=== PATIENT | female | born 1970 | race Caucasian/White ===

== ENCOUNTER 2024-07-08 17:43 | Emergency (ER) | payer MEDICARE, SELFPAY ==
[2024-07-08] VITALS (25 sets, daily range): BP systolic 122–133; BP diastolic 82–96; PULSE 95–238; TEMP 36.7; O2SAT 91–99; BMI 26.6
--- NOTE | 2024-07-08 17:47 | ECG_ITS ---
The [facility] Test Date: 2024-07-08 Pat Name: RUBEN BLANCHARD Department: Room: - Gender: Female Resource Analyst: : 1970 Requested By: [id number] Order Number: [id number] Reading MD: BETHANY LUNDBERG Measurements Intervals [place] Rate: 237 P: -12079 CT: -59953 QRS: 97 QRSD: 78 T: 32 QT: 254 QTc: 360 Interpretive Statements 1420 Undetermined rhythm (Possible supraventricular tachycardia) [address] depression, possible subendocardial injury 4564 Twave abnormality, possible lateral ischemia 7102 Moderate right axis deviation 9150 abnormal ECG No previous ECG available for comparison Electronically Signed On 07-09-2024 14:48:24 EST by BETHANY LUNDBERG
--- NOTE | 2024-07-08 17:47 | XR_ITS ---
The [address] [address] Patient Name: RUBEN BLANCHARD MRN: [id number] date: 1970 Sex: F Assigned Patient Location: ED.MAIN Current Patient Location: Accession/Order Number: [id number] Exam Date: 07/08/2024 18:02 Report Date: 07/08/2024 20:16 At the request of: BLAINE PADILLA Procedure: XR chest 1V CXR HISTORY: Shortness of breath COMPARISON: None. TECHNIQUE: 1 view chest submitted for review. FINDINGS: Cardiac monitoring device demonstrated. The lungs are adequately expanded without evidence of acute infiltrate or effusion. The cardiac silhouette measures within normal. Pulmonary vascularity is unremarkable. Osseous structures do not demonstrate any acute abnormality. XR/XR chest 1V IMPRESSION: No plain film evidence for acute cardiopulmonary disease. Electronically authenticated by: ALFONZO ROSE Date: 07/08/2024 20:16
[2024-07-08] MEDS: ADENOSINE 6 MG/2 ML VIAL IVP (17:51)
[2024-07-08] MEDS: ADENOSINE 6 MG/2 ML VIAL 12 MG IVP (17:53)
--- NOTE | 2024-07-08 17:53 | ECG_ITS ---
The [facility] Test Date: 2024-07-08 Pat Name: RUBEN BLANCHARD Department: Room: - Gender: Female Social Media Content Specialist: : 1970 Requested By: [id number] Order Number: [id number] Reading MD: BETHANY LUNDBERG Measurements Intervals [place] Rate: 120 P: 80 SC: 142 QRS: 95 QRSD: 76 T: 73 QT: 296 QTc: 367 Interpretive Statements 1120 Sinus tachycardia 1470 with occasional supraventricular premature complexes 1570 with occasional ventricular premature complexes [address] depression 7102 Moderate right axis deviation 9150 abnormal ECG Electronically Signed On 07-09-2024 14:57:38 EST by BETHANY LUNDBERG
--- NOTE | 2024-07-08 18:07 | ED_ITS ---
HPI - Chest Pain General Chief Complaint: Chest Pain Stated Complaint: SHORTNESS OF BREATH Time Seen by Provider: 07/08/24 17:46 Source: patient Mode of arrival: Wheelchair History of Present Illness HPI narrative: The patient is a 53-year-old female who have a history of SVT presenting to us brought to by the private car after she was attending a , the patient lives initially in [place] she just came here to attend friend , the patient denies being emotional when this started but she mentioned just within the last few minutes she started having this chest pain and dizziness Patient mentioned this happened to her almost 6 times before sometimes she need to be cardioverted The patient was sweating as well upon arrival Related Data Allergies Allergy/AdvReac Type Severity Reaction Status Date / Time No Known Drug Allergies Allergy Verified 07/08/24 17:48 Review of Systems ROS Status of ROS 10 or more systems reviewed and unremark able except as noted in history and below Exam Narrative Exam Narrative: Nurses notes and vital signs reviewed and patient is not hypoxic. General: Well-appearing and in no apparent distress. Skin: Warm, dry, no pallor noted. No rash. Head: Normocephalic, atraumatic. Neck: Supple, non-tender. Eye: Pupils are equal, round and EOMI. No scleral icterus. Ears, Nose, Mouth, and Throat: TM are clear, no nasal mucosal hypertrophy. Oral mucosa is moist, no posterior oropharynx erythema, uvula is mid-line Cardiovascular: Regular Rate and Rhythm after the SVT was treated, without murmur, gallop or rub. Respiratory: No accessory muscle use or respiratory distress. Lungs are clear to auscultation, no wheezing, rales or rhonchi Chest Wall: no tenderness Back: No midline thoracic or lumbar vertebral tenderness. No CVA tenderness Musculoskeletal: normal ROM, no calf or popliteal tenderness, no lower extremity edema/swelling GI: Abdomen is soft, non-distended. Normal bowel sounds. No masses appreciated. No tenderness to palpation. No rebound, guarding, or rigidity noted. Neurological: A&O x4. No cranial nerve dysfunction observed. No truncal ataxia. Moves all extremities. Sensation intact. Psychiatric: Cooperative and interactive. Normal mood and affect. Constitutional Vital Signs, click to edit/add: Last Vital Signs Temp 98.0 F 07/08/24 18:00 Pulse 110 H 07/08/24 18:30 Resp 19 07/08/24 18:30 BP 125/85 07/08/24 18:30 Pulse Ox 99 07/08/24 18:30 O2 Del Method Nasal Cannula 07/08/24 17:53 O2 Flow Rate 2 07/08/24 17:53 Course Vital Signs Vital signs: Vital Signs Pulse Rate 221 H 07/08/24 17:43 Respiratory Rate 26 H 07/08/24 17:43 Pulse Oximetry 97 07/08/24 17:43 Oxygen Delivery Method Nasal Cannula 07/08/24 17:43 Oxygen Delivery Flow Rate 2 07/08/24 17:43 Temperature 98.0 F 07/08/24 18:00 Pulse Rate 110 H 07/08/24 18:30 Respiratory Rate 19 07/08/24 18:30 Blood Pressure 125/85 07/08/24 18:30 Pulse Oximetry 99 07/08/24 18:30 Oxygen Delivery Method Nasal Cannula 07/08/24 17:53 Oxygen Delivery Flow Rate 2 07/08/24 17:53 MDM - Chest Pain MDM Narrative Medical decision making narrative: The patient EKG initially showing SVT and heart rate was 237 The patient at that time and provided with 6 mg of adenosine that did not help her controlling the rhythm and then she was provided with 12 mg That was sufficient to control the patient rhythm to sinus rhythm the repeated EKG showing sinus rhythm with a heart rate of [address] elevation but there is some ST depression noticed on multiple leads with no old EKG for comparison, mostly leads V4, V5 and V6 Patient blood workup showed no acute significant pathology her first troponin was negative but awaiting the second troponin the patient care will be transferred to Lab Data Labs: Lab Results 07/08/24 Range/Units 18:08 WBC 7.5 (4.0-11.0) 10^3/uL RBC 5.32 (4.20-5.40) 10^6/uL Hgb 14.2 (12.0-16.0) g/dL Hct 45.2 (36.0-48.0) % MCV 85.0 (81.0-99.0) fL MCH 26.7 (26.7-34.0) pg MCHC 31.4 (29.9-35.2) g/dL RDW 14.5 (11.0-15.0) % Plt Count 227 (150-450) 10^3/uL MPV 9.8 (9.5-13.5) fL Neut % (Auto) 58.8 (43.0-75.0) % Lymph % (Auto) 33.3 (20.5-60.0) % [place] % (Auto) 5.7 (1.7-12.0) % Eos % (Auto) 1.6 (0.9-7.0) % Baso % (Auto) 0.5 (0.2-2.0) % Neut # (Auto) 4.4 (1.4-6.5) 10^3/uL Lymph # (Auto) 2.5 (1.2-3.8) 10^3/uL [place] # (Auto) 0.4 (0.3-0.8) 10^3/uL Eos # (Auto) 0.1 (0.0-0.7) 10^3/uL Baso # (Auto) 0.0 (0.0-0.1) 10^3/uL Abs Immat Gran (auto) 0.01 (0.00-0.03) 10^3/uL Imm/Tot Granulo (auto) 0.1 (0.0-0.5) % PT 10.3 (9.0-11.6) sec INR 0.97 Sodium 145 (136-145) mmol/L Potassium 3.7 (3.5-5.1) mmol/L Chloride 105 (98-107) mmol/L Carbon Dioxide 28.1 (21.0-32.0) mmol/L Anion Gap 15.6 BUN 18.0 (7.0-18.0) mg/dL Creatinine 1.26 H (0.55-1.02) mg/dL Est GFR ( Amer) 53 L (>=60 mL/min/1.73m^2) Est GFR (Non-Af Amer) 44 L (>=60 mL/min/1.73m^2) BUN/Creatinine Ratio 14.3 Glucose 112 H (74-106) mg/dL Calcium 9.1 (8.5-10.1) mg/dL Magnesium 2.2 (1.8-2.4) mg/dL Total Bilirubin 0.7 (0.2-1.0) mg/dL AST 37 (15-37) U/L ALT 36 (14-59) U/L Alkaline Phosphatase 103 (46-116) U/L Troponin I High Sens <4.0 L (4.0-51.3) pg/mL Total Protein 7.5 (6.4-8.2) g/dL Albumin 3.6 (3.4-5.0) g/dL Globulin 3.9 g/dL Albumin/Globulin Ratio 0.9 Ethanol Quant <3 mg/dL Discharge Plan Discharge Patient Disposition: Still a Patient
[2024-07-08] MEDS: 0.9 % SODIUM CHLORIDE 1,000 ML 500 ML IV (18:23)
[2024-07-08 18:24] LABS: Basophils Percent Auto 0.5 % (0.2-2.0); Eosinophils Absolute Auto 0.1 10^3/uL (0.0-0.7); Eosinophils Percent Auto 1.6 % (0.9-7.0); Hematocrit 45.2 % (36.0-48.0); Hemoglobin 14.2 g/dL (12.0-16.0); Immature Granulocytes Abs Auto 0.01 10^3/uL (0.00-0.03); Immature Granulocytes Pct Auto 0.1 % (0.0-0.5); Lymphocytes Absolute Auto 2.5 10^3/uL (1.2-3.8); Lymphocytes Percent Auto 33.3 % (20.5-60.0); Mean Corpuscular HGB Conc 31.4 g/dL (29.9-35.2); Mean Corpuscular Hemoglobin 26.7 pg (26.7-34.0); Mean Platelet Volume 9.8 fL (9.5-13.5); Monocytes Absolute Auto 0.4 10^3/uL (0.3-0.8); Monocytes Percent Auto 5.7 % (1.7-12.0); Neutrophils Absolute Auto 4.4 10^3/uL (1.4-6.5); Neutrophils Percent Auto 58.8 % (43.0-75.0); Platelet Count 227 10^3/uL (150-450); Red Blood Count 5.32 10^6/uL (4.20-5.40); Red Cell Distribution Width 14.5 % (11.0-15.0); White Blood Count 7.5 10^3/uL (4.0-11.0)
[2024-07-08 18:38] LABS: INR 0.97; Prothrombin Time 10.3 sec (9.0-11.6)
[2024-07-08 18:42] LABS: Alanine Aminotransferase 36 U/L (14-59); Albumin Globulin Ratio 0.9; Albumin Level 3.6 g/dL (3.4-5.0); Alkaline Phosphatase 103 U/L (46-116); Anion Gap 15.6; Aspartate Amino Transferase 37 U/L (15-37); BUN Creatinine Ratio 14.3; Bilirubin Total 0.7 mg/dL (0.2-1.0); Calcium 9.1 mg/dL (8.5-10.1); Carbon Dioxide 28.1 mmol/L (21.0-32.0); Chloride 105 mmol/L (98-107); Estimated GFR (African America 53 (>=60 mL/min/1.73m^2); Estimated GFR (Non-African Ame 44 (>=60 mL/min/1.73m^2); Globulin 3.9 g/dL; Glucose 112 mg/dL (74-106); Magnesium 2.2 mg/dL (1.8-2.4); Potassium 3.7 mmol/L (3.5-5.1); Sodium 145 mmol/L (136-145); Total Protein 7.5 g/dL (6.4-8.2); Troponin I High Sensitivity <4.0 pg/mL (4.0-51.3)
[2024-07-08 18:44] LABS: Ethanol <3 mg/dL
[2024-07-08 19:54] LABS: Troponin I High Sensitivity 17.8 pg/mL (4.0-51.3)
--- NOTE | 2024-07-08 20:00 | ED.GENADUL1 ---
HPI HPI - General Adult General Chief complaint: Chest Pain Stated complaint: SHORTNESS OF BREATH Time Seen by Provider: 07/08/24 17:46 Source: patient Mode of arrival: Wheelchair History of Present Illness HPI narrative: 53-year-old female presented to the emergency department and was initially seen by Dr. Boudreaux and signed out to me after discussing the case with her thoroughly. Please see her full history and physical exam. Related Data Allergies Allergy/AdvReac Type Severity Reaction Status Date / Time No Known Drug Allergies Allergy Verified 07/08/24 17:48 Opioid HPI Opioid Management Most Recent Opioid Data: No Data to Display Exam Constitutional Vital Signs, click to edit/add: Last Vital Signs Temp 98.0 F 07/08/24 18:00 Pulse 98 H 07/08/24 19:30 Resp 12 07/08/24 19:30 BP 133/88 07/08/24 19:30 Pulse Ox 99 07/08/24 19:30 O2 Del Method Nasal Cannula 07/08/24 17:53 O2 Flow Rate 2 07/08/24 17:53 Course Vital Signs Vital signs: Vital Signs Pulse Rate 221 H 07/08/24 17:43 Respiratory Rate 26 H 07/08/24 17:43 Pulse Oximetry 97 07/08/24 17:43 Oxygen Delivery Method Nasal Cannula 07/08/24 17:43 Oxygen Delivery Flow Rate 2 07/08/24 17:43 Temperature 98.0 F 07/08/24 18:00 Pulse Rate 98 H 07/08/24 19:30 Respiratory Rate 12 07/08/24 19:30 Blood Pressure 133/88 07/08/24 19:30 Pulse Oximetry 99 07/08/24 19:30 Oxygen Delivery Method Nasal Cannula 07/08/24 17:53 Oxygen Delivery Flow Rate 2 07/08/24 17:53 Medical Decision Making [facility] Narrative Medical decision making narrative: The patient remains in sinus rhythm and is asymptomatic and is able to be discharged home. There was a slight increase in her troponin but this would be expected in SVT. She will follow-up with cardiology and referral was made. Treatment diagnosis and follow-up were discussed with the patient Differential Diagnosis Differential Diagnosis: SVT Lab Data Lab results reviewed: Yes I reviewed the patient's lab results Labs: Lab Results 07/08/24 07/08/24 Range/Units 18:08 19:25 WBC 7.5 (4.0-11.0) 10^3/uL RBC 5.32 (4.20-5.40) 10^6/uL Hgb 14.2 (12.0-16.0) g/dL Hct 45.2 (36.0-48.0) % MCV 85.0 (81.0-99.0) fL MCH 26.7 (26.7-34.0) pg MCHC 31.4 (29.9-35.2) g/dL RDW 14.5 (11.0-15.0) % Plt Count 227 (150-450) 10^3/uL MPV 9.8 (9.5-13.5) fL Neut % (Auto) 58.8 (43.0-75.0) % Lymph % (Auto) 33.3 (20.5-60.0) % [place] % (Auto) 5.7 (1.7-12.0) % Eos % (Auto) 1.6 (0.9-7.0) % Baso % (Auto) 0.5 (0.2-2.0) % Neut # (Auto) 4.4 (1.4-6.5) 10^3/uL Lymph # (Auto) 2.5 (1.2-3.8) 10^3/uL [place] # (Auto) 0.4 (0.3-0.8) 10^3/uL Eos # (Auto) 0.1 (0.0-0.7) 10^3/uL Baso # (Auto) 0.0 (0.0-0.1) 10^3/uL Abs Immat Gran (auto) 0.01 (0.00-0.03) 10^3/uL Imm/Tot Granulo (auto) 0.1 (0.0-0.5) % PT 10.3 (9.0-11.6) sec INR 0.97 Sodium 145 (136-145) mmol/L Potassium 3.7 (3.5-5.1) mmol/L Chloride 105 (98-107) mmol/L Carbon Dioxide 28.1 (21.0-32.0) mmol/L Anion Gap 15.6 BUN 18.0 (7.0-18.0) mg/dL Creatinine 1.26 H (0.55-1.02) mg/dL Est GFR ( Amer) 53 L (>=60 mL/min/1.73m^2) Est GFR (Non-Af Amer) 44 L (>=60 mL/min/1.73m^2) BUN/Creatinine Ratio 14.3 Glucose 112 H (74-106) mg/dL Calcium 9.1 (8.5-10.1) mg/dL Magnesium 2.2 (1.8-2.4) mg/dL Total Bilirubin 0.7 (0.2-1.0) mg/dL AST 37 (15-37) U/L ALT 36 (14-59) U/L Alkaline Phosphatase 103 (46-116) U/L Troponin I High Sens <4.0 L 17.8 (4.0-51.3) pg/mL Total Protein 7.5 (6.4-8.2) g/dL Albumin 3.6 (3.4-5.0) g/dL Globulin 3.9 g/dL Albumin/Globulin Ratio 0.9 Ethanol Quant <3 mg/dL Discharge Plan Discharge Chief Complaint: Chest Pain Clinical Impression: SVT (supraventricular tachycardia), Chest pain Patient Disposition: Home, Self-Care Time of Disposition Decision: 19:59 Mode of Transportation: Private Vehicle Print Language: Azeri Instructions: Supraventricular Tachycardia (ED) Referrals: Ran Durant MD [Physician] - 1 week
== END 2024-07-08 20:16 | disposition home or self-care (01) ==
PROVIDERS: Emergency Medicine; Emergency Provider Emergency Medicine
DX: I47.10 Supraventricular tachycardia, unspecified (principal); R07.9 Chest pain, unspecified; R06.02 Shortness of breath; R42 Dizziness and giddiness
CPT/HCPCS: 36415; 71045; 80053; 80307; 80320; 83735; 84484; 85025; 85610; 93005; 96361; 96374; 99285